=== PATIENT | male | born 1945 | race Caucasian/White ===

== ENCOUNTER → 2023-05-19 10:25 | Outpatient (REF) | payer OTHER, SELFPAY | LOC: MRI 10:25 | PROVIDERS: ATTENDING PHYSICIAN Surgery Vascular Surgery; FAMILY PHYSICIAN Internal Medicine | DX: I65.23 Occlusion and stenosis of bilateral carotid arteries (principal) | CPT/HCPCS: 70553; A9575 ==

== ENCOUNTER 2023-06-02 04:18 | Inpatient (IN) | payer OTHER, SELFPAY ==
[2023-06-02] VITALS (13 sets, daily range): BP systolic 101–123; BP diastolic 51–103
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
[2023-06-02 01:14] LABS: % Basophils 0.8 % (0-2); % Eosinophils 0.9 % (0-6); % Immature Granulocytes 0.5 % (0-0.5); % Lymphocytes 16.4 % (20.5-51.1); % Monocytes 10.8 % (1.7-9.3); % Neutrophils 70.6 % (42.2-75.2); Absolute Basophils 0.1 10^3/uL (0-0.2); Absolute Eosinophils 0.1 10^3/uL (0-0.7); Absolute Immature Granulocytes 0.1 10^3/uL (0-0.05); Absolute Lymphocytes 1.6 10^3/uL (1.2-3.4); Absolute Monocytes 1.1 10^3/uL (0.1-0.6); Absolute Neutrophils 6.9 10^3/uL (1.4-6.5); Hematocrit 27.7 % (39.0-52.0); Hemoglobin 8.8 g/dL (13.0-18.0); Mean Corp Hgb Conc. 31.8 g/dL (33.0-37.0); Mean Corpuscular Hgb 29.2 pg (27.0-31.0); Nucleated Red Blood Cells % 0 % (-); Platelet Count 354 10^3/uL (130-400); Red Blood Cell Count 3.01 10^6/uL (4.70-6.10); Red Cell Dist. Width 13.7 % (11.5-14.5); White Blood Cell Count 9.8 10^3/uL (4.8-10.8)
[2023-06-02 01:39] LABS: ALT (SGPT) 26 U/L (0-50); AST (SGOT) 16 U/L (17-59); Albumin 2.7 g/dl (3.5-5.0); Alkaline Phosphatase 187 U/L (38-126); Blood Urea Nitrogen 28 mg/dl (9-20); Calcium 9.6 mg/dl (8.4-10.2); Carbon Dioxide 32 mmol/L (22-30); Chloride 102 mmol/L (98-107); Glucose 137 mg/dl (70-99); Potassium 3.7 mmol/L (3.5-5.1); Sodium 138 mmol/L (135-145); Total Bilirubin 0.4 mg/dl (0.2-1.3); Total Protein 5.6 g/dl (6.3-8.2); eGFR 43.56
[2023-06-02 01:40] LABS: INR 1.08; PT 13.8 Sec (11.4-14.6)
[2023-06-02 01:41] LABS: APTT 28.8 Sec (23.4-35.0)
[2023-06-02 01:57] LABS: NT-proBNP 15300 pg/ml; Troponin I 0.085 ng/ml
[2023-06-02 02:07] LABS: COVID-19 Antigen Negative (Negative)
[2023-06-02] MEDS: LASIX 40 MG IV (02:33)
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
[2023-06-02 06:16] LABS: Hematocrit 28.6 % (39.0-52.0); Hemoglobin 8.8 g/dL (13.0-18.0); Mean Corp Hgb Conc. 30.8 g/dL (33.0-37.0); Mean Corpuscular Hgb 29.1 pg (27.0-31.0); Mean Corpuscular Volume 94.7 fL (80.0-94.0); Mean Platelet Volume 9.4 fL (7.4-10.4); Platelet Count 326 10^3/uL (130-400); Red Blood Cell Count 3.02 10^6/uL (4.70-6.10); Red Cell Dist. Width 13.4 % (11.5-14.5); White Blood Cell Count 7.5 10^3/uL (4.8-10.8)
[2023-06-02 06:39] LABS: Troponin I 0.078 ng/ml
[2023-06-02 06:41] LABS: Blood Urea Nitrogen 25 mg/dl (9-20); Calcium 9.3 mg/dl (8.4-10.2); Carbon Dioxide 30 mmol/L (22-30); Chloride 104 mmol/L (98-107); Glucose 123 mg/dl (70-99); Potassium 3.7 mmol/L (3.5-5.1); Sodium 137 mmol/L (135-145); eGFR 37.82
[2023-06-02] MEDS: MUCINEX 1200 MG PO ×2 (08:15→20:35)
[2023-06-02] MEDS: VIBRAMYCIN 100 MG PO ×2 (08:15→20:39)
[2023-06-02] MEDS: DECADRON 4 MG IV ×2 (08:15→15:46)
[2023-06-02] MEDS: DUONEB 3 ML INH ×4 (08:29→20:34)
--- NOTE | 2023-06-02 08:55 | EDRN ---
Assumed care. Pt is an HOLD admit- telemetry level of care. AAOx4. Sallow complexion, skin warm and dry. MALDONADO. Noted audrey LE BKA. Chronic ramirez draining dk yellow UA. Lungs- sl diminished. Cardiac- no edema, monitor sinus rhythm. Depends dry. Waiting
on breakfast.
--- NOTE | 2023-06-02 09:48 | EDRN ---
Nba states ' I don't need to do mouth care, I don't have any teeth.' Offered mouthwash; he declined. Offered wash basin. wash cloth, etc, he declined.
--- NOTE | 2023-06-02 10:21 | PHANOTE ---
06/02/2023, [employer], spoke to pt. to obtain their med. history; pt. states to manage his own meds. at home; pt. does not know whether he is taking Ipratropium Rawlings 0.02% solution QID, Symbicort 160-4.5 mcg/act 2 puff BID, or Wixela 500-50
mcg/act 1 puff BID. All of these breathing treatments are found on pt.'s [facility] records from 05/21/2023; however, none of them are included in pt.'s pharmacy fill data. Could not confirm them.
--- NOTE | 2023-06-02 13:35 | W.PN.UPDATE ---
Update Note
Progress Note Update
Nonbillable note
Patient does not have significant volume overload. Got IV Lasix 40 mg and night with creatinine elevated to 1.8. Hold further Lasix.
Chest x-ray suggestive of new left-sided pleural effusion and may explain patient dyspnea. Interventional radiology consulted for elective thoracentesis.
Patient also on steroids for COPD flareup, will continue for now.
Minimal troponin elevation, no true clinical concern of ongoing ACS. Continue monitoring
--- NOTE | 2023-06-02 13:49 | CM ---
Met with patient in ED room. He lives alone at [facility] and has private aides 3 hours two days a week.
[facility] for sacrum wound and monthly catheter exchange.
He has bilateral BKA. He uses [facility]. He uses w/c and has walker and cane.
[facility] is a and [facility].
HE has home oxygen from [facility].
PCP Dr. Michael Roberts.
PHarmacy: [facility]
He is registered with [facility] for in home waiver program.
IT is unclear if anyone has helped him apply for [facility] aide and attendance benefit.
The rodent control worker at [place] has also helped him in past.
PLAN: HOME with [facility] or [facility] rehab stay.
--- NOTE | 2023-06-02 15:50 | PTCARENOTE ---
pt admitted from ED, came from IR S/P thoracentesis. PT AOx3, LCTA B/L on RA abd soft NT +BS x4. B/L BKA. pt has stage 2 pressure ulcer on sacrum cleansed with saline silicone boarder foam applied. preventative foam applied to thoracic spine.
[2023-06-02] MEDS: LOVENOX 40 MG SC (17:20)
[2023-06-03] MEDS: DECADRON 4 MG IV ×3 (00:19→15:02)
[2023-06-03 07:00] VITALS: BP 124/54
[2023-06-03] MEDS: DUONEB 3 ML INH ×4 (07:50→19:19)
[2023-06-03] MEDS: VIBRAMYCIN 100 MG PO ×2 (08:11→20:22)
[2023-06-03] MEDS: MUCINEX 1200 MG PO ×2 (08:11→20:22)
[2023-06-03 09:08] LABS: Body Fluid Mononuclear 86.3 %; Body Fluid Polymorphonuclear 13.7 %; Body Fluid WBC 409 /CUMM
[2023-06-03 09:11] LABS: Body Fluid Second Tech EF
--- NOTE | 2023-06-03 09:18 | VNURNOTE ---
Patient is current with [facility] since 02/03 for wound care and monthly ramirez changes.
Concerns regarding patient needing more assistance at home communicated to CM.
Patient has aide through [facility] services but [facility] is concerned he is in need of higher level of care.
[2023-06-03 09:24] LABS: Body Fluid Glucose 178 mg/dl; Body Fluid LDH 150 U/L
[2023-06-03 10:58] LABS: Blood Urea Nitrogen 34 mg/dl (9-20); Calcium 9.3 mg/dl (8.4-10.2); Carbon Dioxide 33 mmol/L (22-30); Chloride 94 mmol/L (98-107); Glucose 172 mg/dl (70-99); Potassium 3.6 mmol/L (3.5-5.1); Sodium 133 mmol/L (135-145); eGFR 43.56
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
[2023-06-03 14:53] VITALS: BP 119/60; PULSE 82; O2SAT 98
[2023-06-03 15:00] VITALS: BP 114/63
--- NOTE | 2023-06-03 16:42 | CM ---
Spoke with Nano from [facility] who will call back to tomorrow. Requested MD to order PT OT eval to assess dc needs.Will review with Nano.
As per Nano he is registered with [facility] for in home waiver program and she requested more director career time.
He has bilateral BKA. He uses w/c .
He is a [place] and [facility].
HE has home oxygen from [facility] [employer].
PLAN: HOME with [facility] or SNF rehab stay.
[2023-06-03] MEDS: LOVENOX 40 MG SC (16:59)
[2023-06-03 23:00] VITALS: BP 118/63
[2023-06-04] VITALS (8 sets, daily range): BP systolic 115–134; BP diastolic 56–72; PULSE 75; O2SAT 98
[2023-06-04] MEDS: DECADRON 4 MG IV ×4 (00:32→23:51)
[2023-06-04 06:34] LABS: Blood Urea Nitrogen 36 mg/dl (9-20); Calcium 9.5 mg/dl (8.4-10.2); Carbon Dioxide 33 mmol/L (22-30); Chloride 99 mmol/L (98-107); Glucose 105 mg/dl (70-99); Potassium 4.1 mmol/L (3.5-5.1); Sodium 134 mmol/L (135-145)
[2023-06-04] MEDS: DUONEB 3 ML INH ×4 (07:17→19:46)
[2023-06-04] MEDS: MUCINEX 1200 MG PO ×2 (08:21→20:22)
[2023-06-04] MEDS: VIBRAMYCIN 100 MG PO ×2 (08:21→20:22)
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
--- NOTE | 2023-06-04 15:22 | CM ---
Spoke with patient in room . Reviewed PT OT evals which recommended SNF.
Pt consented to go to rehab at [facility].
[facility] and [facility] snf referral placed in care port.
Will need auth.
Spoke with sister Geno [phone] (# changed Adm notified to change).she agrees with SNF at [facility].
He lives at [facility] ,As per Nano he is registered with [facility] for in home waiver program and she requested more care connector time.
He has bilateral BKA. He uses w/c .
He is a [place] [facility].
HE has home oxygen from [facility].
PLAN: To SNF after located and auth obtained
.
[2023-06-04] MEDS: LOVENOX 40 MG SC (17:21)
[2023-06-05 07:00] VITALS: BP 119/58
[2023-06-05] MEDS: DUONEB 3 ML INH (07:27)
[2023-06-05 08:34] LABS: Blood Urea Nitrogen 48 mg/dl (9-20); Calcium 9.8 mg/dl (8.4-10.2); Carbon Dioxide 34 mmol/L (22-30); Chloride 97 mmol/L (98-107); Glucose 102 mg/dl (70-99); Potassium 4.7 mmol/L (3.5-5.1); Sodium 135 mmol/L (135-145); eGFR 43.56
[2023-06-05] MEDS: MUCINEX 1200 MG PO ×2 (09:03→20:17)
[2023-06-05] MEDS: VIBRAMYCIN 100 MG PO (09:03)
[2023-06-05] MEDS: DECADRON 4 MG IV (09:03)
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
[2023-06-05 15:00] VITALS: BP 102/55
[2023-06-05] MEDS: LOVENOX 40 MG SC (17:01)
[2023-06-05 23:00] VITALS: BP 130/58
[2023-06-06 07:00] VITALS: BP 116/58
[2023-06-06] MEDS: DELTASONE 40 MG PO (07:44)
[2023-06-06] MEDS: MUCINEX 1200 MG PO (07:44)
[2023-06-06 07:49] LABS: Blood Urea Nitrogen 51 mg/dl (9-20); Calcium 9.7 mg/dl (8.4-10.2); Carbon Dioxide 36 mmol/L (22-30); Chloride 95 mmol/L (98-107); Glucose 80 mg/dl (70-99); Potassium 4.3 mmol/L (3.5-5.1); Sodium 135 mmol/L (135-145); eGFR 35.44
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
[2023-06-06 15:00] VITALS: BP 120/53
[2023-06-06] MEDS: LOVENOX 40 MG SC (17:13)
[2023-06-06] MEDS: MUCINEX PO ×2 (20:28→20:35)
[2023-06-06 23:25] VITALS: BP 132/60
[2023-06-07 07:00] VITALS: BP 109/53
[2023-06-07] MEDS: MUCINEX 1200 MG PO (08:48)
[2023-06-07] MEDS: DELTASONE 40 MG PO (08:48)
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
[2023-06-07 09:59] LABS: Blood Urea Nitrogen 16 mg/dl (9-20); Calcium 9.4 mg/dl (8.4-10.2); Carbon Dioxide 28 mmol/L (22-30); Chloride 103 mmol/L (98-107); Glucose 71 mg/dl (70-99); Potassium 3.9 mmol/L (3.5-5.1); Sodium 137 mmol/L (135-145); eGFR > 60.00
[2023-06-07 11:20] VITALS: BP 111/54; PULSE 63; O2SAT 98
[2023-06-07 12:08] VITALS: BP 111/54; PULSE 66; O2SAT 98
--- NOTE | 2023-06-07 13:16 | CM ---
Addendum entered by Ana Luisa Finnegan RN 06/07/23 14:22:
Eri S assisted and obtained auth for [facility] approved 8 days level 1 from 06/07/23 to 06/14/23 auth #[id number] Natalia [facility] aware.
Auth for ambulance [facility] auth #[id number] assistant secretary set up ambulance.
Geno sister aware of dc to [facility] today.
Linda from [facility] aware pt going to [facility] today.
IMM reviewed and agreed with dc today.
PLAN To [facility]
Original Note:
PT OT recommended SNF.
[facility] Natalia said she can take patient.
Pt on oxygen 2 liters 98%.
Pt will audrey BKA. He lives alone at [facility]. Nano [facility]ITCHCOCK at [facility] has requested increased md do resident urgent care hours.
Pt is [employer] pt.Needs auth for [facility] and ambulance .
Medical nec form completed.
[facility]
report [phone]
fax [phone]
PLAN [facility] after auth
--- NOTE | 2023-06-07 14:13 | W.DCSUMMARY ---
Discharge Summary
Discharge Data
Date of Admission: 06/02/23
Date of Discharge: 06/07/23
-
Pending Results: No
Hospital Course
Patient 77 years old male history of CHF, COPD, bilateral BKA, presented to the hospital shortness of and found to be in COPD exacerbation and also left pleural effusion. Patient had 1.2 L of transudative fluid taken out from left pleural. He was
given Lasix upon admission but discontinued and did well off diuretics. He was placed on IV steroids and bronchodilators as well as mucolytics. Patient respiratory status improved and steroids were switched to oral. Patient feels close back to
his baseline. It was determined that he will require some degree of rehabilitation and jail facility has been arranged. Patient will be discharged in relatively stable condition today.
Discharge duration: 35 minutes
Discharge Plan
-
Patient Disposition: Prison/SNF
Discharge Diagnosis/Procedures: COPD flare up, Left side pleural effusion
Condition: Fair
Diet: 2 Gram Sodium
Activity: As tolerated
Driving Restrictions: No driving
Bathing Restrictions: As per facility protocol
Other Services: PT
Referrals:
Hussein Roberts MD [Family Provider] - in one week
Prescriptions:
New
guaifenesin 600 mg Tablet Extended Release 12hr
1,200 mg PO Q12 Qty: 10 0RF
prednisone 10 mg Tablet
See Rx Instructions .ROUTE .COMPLEX Qty: 30 0RF
Rx Instructions:
Take By Mouth:
40 mg daily x3 days, 30 mg daily x3 days,
20 mg daily x3 days, 10 mg daily x3 days.
tramadol 50 mg tablet
50 mg PO BID PRN (Reason: severe pain) Qty: 4 0RF
polyethylene glycol 3350 [Miralax] 17 gram/dose powder
4 g PO DAILY Qty: 119 0RF
Continued
tamsulosin 0.4 MG capsule
0.4 mg PO QPM
cilostazol 100 MG tablet
100 mg PO BID
metoprolol succinate 50 MG tablet extended release 24 hr
25 mg PO DAILY
ipratropium bromide 0.2 MG/ML solution
0.2 mg inhalation R QID
pantoprazole 40 MG tablet,delayed release (DR/EC)
40 mg PO DAILY
simvastatin 80 mg Tablet
40 mg PO QPM
ferrous sulfate 325 mg (65 mg iron) Tablet
325 mg PO BID
fluticasone propion-salmeterol [Wixela Inhub] 500-50 mcg/dose Blister With Device
1 inh INHALATION R BID
Patient Comments:
patient unable to verify if he takes wixela or symbicort but scanned paperwork from january show wixela.
albuterol sulfate 90 mcg/actuation Hfa Aerosol Inhaler
2 puff INHALATION R Q4HPRN PRN (Reason: sob/wheezing)
Sinus Tablets
1 tab PO Q4HPRN PRN (Reason: sinus)
Patient Comments:
06/02/2023, pt. gets sinus tablets OTC but is unsure of name and strength of this med.
Discontinued
tramadol 50 mg Tablet
50 mg PO DAILY PRN (Reason: severe pain)
Patient Comments:
06/02/2023, pt. filled this med. on 05/12/2023 for 5 tablets per PDMP.
Discharge Orders:
Discharge Patient (As Directed); Ordered 06/07/23
Ordered By: Froylan Sahni
Discharge Date and Time
Discharge Date/Time: 06/07/23 19:16
[2023-06-07 15:00] VITALS: BP 120/55
[2023-06-07] MEDS: LOVENOX 40 MG SC (18:24)
== END 2023-06-07 19:16 | DRG 190 ==
LOC: 3 WEST ACU 04:18
PROVIDERS: Radiology Diagnostic Radiology; Student in an Organized Health Care Education/Training Program; ADMITTING PHYSICIAN Internal Medicine; ATTENDING PHYSICIAN Hospitalist; EMERGENCY PHYSICIAN Hospitalist; FAMILY PHYSICIAN Internal Medicine
PROC: 0W9B3ZX Drainage of Left Pleural Cavity, Percutaneous Approach, Diagnostic (ICD-10-PCS; 2023-06-02)
DX: J44.1 Chronic obstructive pulmonary disease with (acute) exacerbation (principal); J96.21 Acute and chronic respiratory failure with hypoxia; I50.32 Chronic diastolic (congestive) heart failure; I13.0 Hypertensive heart and chronic kidney disease with heart failure and stage 1 through stage 4 chronic kidney disease, or unspecified chronic kidney disease; E87.1 Hypo-osmolality and hyponatremia; Z11.52 Encounter for screening for COVID-19; F17.200 Nicotine dependence, unspecified, uncomplicated; N18.32 Chronic kidney disease, stage 3b; N40.0 Benign prostatic hyperplasia without lower urinary tract symptoms; K21.9 Gastro-esophageal reflux disease without esophagitis; E78.00 Pure hypercholesterolemia, unspecified
CPT/HCPCS: 88305; 32555; 71045; 80048; 80053; 82945; 83615; 83880; 84484; 85025; 85027; 85610; 85730; 87015; 87070; 87205; 87502; 87811; 88112; 88341; 88342; 89051; 93005; 94640; 96374; 97162; 97166; 97530; 99285

== ENCOUNTER → 2023-06-17 10:19 | Outpatient (REF) | payer OTHER, SELFPAY ==
[2023-06-17 10:33] LABS: % Basophils 0.1 % (0-2); % Eosinophils 1.5 % (0-6); % Immature Granulocytes 0.9 % (0-0.5); % Lymphocytes 11.1 % (20.5-51.1); % Monocytes 10.6 % (1.7-9.3); % Neutrophils 75.8 % (42.2-75.2); Absolute Eosinophils 0.1 10^3/uL (0-0.7); Absolute Immature Granulocytes 0.1 10^3/uL (0-0.05); Absolute Lymphocytes 0.9 10^3/uL (1.2-3.4); Absolute Monocytes 0.8 10^3/uL (0.1-0.6); Absolute Neutrophils 5.9 10^3/uL (1.4-6.5); Hematocrit 24.6 % (39.0-52.0); Hemoglobin 7.7 g/dL (13.0-18.0); Mean Corp Hgb Conc. 31.3 g/dL (33.0-37.0); Mean Corpuscular Hgb 30.2 pg (27.0-31.0); Mean Corpuscular Volume 96.5 fL (80.0-94.0); Mean Platelet Volume 10.9 fL (7.4-10.4); Nucleated Red Blood Cells % 0 % (-); Platelet Count 217 10^3/uL (130-400); Red Blood Cell Count 2.55 10^6/uL (4.70-6.10); Red Cell Dist. Width 14.4 % (11.5-14.5); White Blood Cell Count 7.8 10^3/uL (4.8-10.8)
[2023-06-17 11:00] LABS: Blood Urea Nitrogen 44 mg/dl (9-20); Calcium 8.6 mg/dl (8.4-10.2); Carbon Dioxide 31 mmol/L (22-30); Chloride 102 mmol/L (98-107); Glucose 87 mg/dl (70-99); Potassium 4.8 mmol/L (3.5-5.1); eGFR 37.82
[2023-06-17 11:08] LABS: Sodium 136 mmol/L (135-145)
== END ==
LOC: OLABP 10:19
PROVIDERS: ATTENDING PHYSICIAN Family Medicine
DX: E87.1 Hypo-osmolality and hyponatremia (principal); I13.0 Hypertensive heart and chronic kidney disease with heart failure and stage 1 through stage 4 chronic kidney disease, or unspecified chronic kidney disease; N18.30 Chronic kidney disease, stage 3 unspecified; I50.30 Unspecified diastolic (congestive) heart failure; J90 Pleural effusion, not elsewhere classified; J44.1 Chronic obstructive pulmonary disease with (acute) exacerbation
CPT/HCPCS: 36415; 80048; 85025

== ENCOUNTER → 2023-06-23 09:09 | Outpatient (REF) | payer OTHER, SELFPAY ==
[2023-06-23 10:13] LABS: % Basophils 0.2 % (0-2); % Eosinophils 0.4 % (0-6); % Immature Granulocytes 0.6 % (0-0.5); % Lymphocytes 6.5 % (20.5-51.1); % Monocytes 8.2 % (1.7-9.3); % Neutrophils 84.1 % (42.2-75.2); Absolute Immature Granulocytes 0.1 10^3/uL (0-0.05); Absolute Lymphocytes 0.6 10^3/uL (1.2-3.4); Absolute Monocytes 0.7 10^3/uL (0.1-0.6); Absolute Neutrophils 7.2 10^3/uL (1.4-6.5); Hematocrit 24.5 % (39.0-52.0); Hemoglobin 7.4 g/dL (13.0-18.0); Mean Corp Hgb Conc. 30.2 g/dL (33.0-37.0); Mean Corpuscular Hgb 29.2 pg (27.0-31.0); Mean Corpuscular Volume 96.8 fL (80.0-94.0); Mean Platelet Volume 10.9 fL (7.4-10.4); Nucleated Red Blood Cells % 0 % (-); Platelet Count 205 10^3/uL (130-400); Red Blood Cell Count 2.53 10^6/uL (4.70-6.10); Red Cell Dist. Width 14.3 % (11.5-14.5); White Blood Cell Count 8.6 10^3/uL (4.8-10.8)
[2023-06-23 10:26] LABS: Blood Urea Nitrogen 51 mg/dl (9-20); Glucose 93 mg/dl (70-99)
[2023-06-23 10:27] LABS: ALT (SGPT) 14 U/L (0-50); AST (SGOT) 22 U/L (17-59); Albumin 2.4 g/dl (3.5-5.0); Alkaline Phosphatase 85 U/L (38-126); Calcium 9.7 mg/dl (8.4-10.2); Carbon Dioxide 28 mmol/L (22-30); Chloride 108 mmol/L (98-107); Sodium 135 mmol/L (135-145); Total Bilirubin 0.6 mg/dl (0.2-1.3); Total Protein 4.8 g/dl (6.3-8.2); eGFR 28.18
[2023-06-23 11:13] LABS: Urine Albumin Trace (Neg - Trace); Urine Bilirubin 1+ (Negative); Urine Character Slightly Cloudy (Clear); Urine Color Yellow; Urine Glucose Negative (Negative); Urine Ketone Negative (Negative); Urine Leukocyte 2+ (Negative); Urine Nitrite Negative (Negative); Urine Occult Blood 4+ (Negative); Urine Urobilinogen Negative (Neg - 1+)
[2023-06-23 11:30] LABS: Urine Bacteria Many (Negative); Urine Red Blood Cell 30-40 /HPF (0-2); Urine White Cell 50-60 /HPF (0-5)
== END ==
LOC: OLABP 09:09
PROVIDERS: ATTENDING PHYSICIAN Family Medicine
DX: N18.30 Chronic kidney disease, stage 3 unspecified (principal); R48.8 Other symbolic dysfunctions; E87.1 Hypo-osmolality and hyponatremia; M62.81 Muscle weakness (generalized); N40.0 Benign prostatic hyperplasia without lower urinary tract symptoms; E78.5 Hyperlipidemia, unspecified; I13.0 Hypertensive heart and chronic kidney disease with heart failure and stage 1 through stage 4 chronic kidney disease, or unspecified chronic kidney disease; K21.9 Gastro-esophageal reflux disease without esophagitis; Z89.511 Acquired absence of right leg below knee; Z89.512 Acquired absence of left leg below knee; J44.1 Chronic obstructive pulmonary disease with (acute) exacerbation; J90 Pleural effusion, not elsewhere classified; I50.30 Unspecified diastolic (congestive) heart failure; R26.2 Difficulty in walking, not elsewhere classified; J96.11 Chronic respiratory failure with hypoxia; R33.9 Retention of urine, unspecified; M62.59 Muscle wasting and atrophy, not elsewhere classified, multiple sites; R27.8 Other lack of coordination; Z74.1 Need for assistance with personal care; R13.10 Dysphagia, unspecified
CPT/HCPCS: 80053; 81003; 81015; 85025; 87077; 87086; 87186

== ENCOUNTER → 2023-06-24 11:13 | Outpatient (REF) | payer OTHER, SELFPAY ==
[2023-06-24 12:44] LABS: % Basophils 0.3 % (0-2); % Eosinophils 0.6 % (0-6); % Immature Granulocytes 0.5 % (0-0.5); % Lymphocytes 7.5 % (20.5-51.1); % Monocytes 8.4 % (1.7-9.3); % Neutrophils 82.7 % (42.2-75.2); Absolute Eosinophils 0.1 10^3/uL (0-0.7); Absolute Lymphocytes 0.7 10^3/uL (1.2-3.4); Absolute Monocytes 0.8 10^3/uL (0.1-0.6); Absolute Neutrophils 7.3 10^3/uL (1.4-6.5); Hematocrit 24.5 % (39.0-52.0); Hemoglobin 7.4 g/dL (13.0-18.0); Mean Corp Hgb Conc. 30.2 g/dL (33.0-37.0); Mean Corpuscular Hgb 29.6 pg (27.0-31.0); Nucleated Red Blood Cells % 0 % (-); Platelet Count 193 10^3/uL (130-400); Red Cell Dist. Width 14.6 % (11.5-14.5); White Blood Cell Count 8.9 10^3/uL (4.8-10.8)
[2023-06-24 13:09] LABS: Blood Urea Nitrogen 54 mg/dl (9-20); Calcium 9.1 mg/dl (8.4-10.2); Carbon Dioxide 26 mmol/L (22-30); Chloride 105 mmol/L (98-107); Glucose 98 mg/dl (70-99); Potassium 4.3 mmol/L (3.5-5.1); Sodium 137 mmol/L (135-145); eGFR 26.78
== END ==
LOC: OLABP 11:13
PROVIDERS: ATTENDING PHYSICIAN Family Medicine
DX: N18.30 Chronic kidney disease, stage 3 unspecified (principal); R48.8 Other symbolic dysfunctions; E87.1 Hypo-osmolality and hyponatremia; M62.81 Muscle weakness (generalized); N40.0 Benign prostatic hyperplasia without lower urinary tract symptoms; E78.5 Hyperlipidemia, unspecified; I13.0 Hypertensive heart and chronic kidney disease with heart failure and stage 1 through stage 4 chronic kidney disease, or unspecified chronic kidney disease; K21.9 Gastro-esophageal reflux disease without esophagitis; Z89.511 Acquired absence of right leg below knee; Z89.512 Acquired absence of left leg below knee; R26.2 Difficulty in walking, not elsewhere classified; J96.11 Chronic respiratory failure with hypoxia; R33.9 Retention of urine, unspecified; M62.59 Muscle wasting and atrophy, not elsewhere classified, multiple sites; R27.8 Other lack of coordination; Z74.1 Need for assistance with personal care; R13.10 Dysphagia, unspecified; J44.1 Chronic obstructive pulmonary disease with (acute) exacerbation; J90 Pleural effusion, not elsewhere classified; I50.30 Unspecified diastolic (congestive) heart failure
CPT/HCPCS: 36415; 80048; 85025

== ENCOUNTER → 2023-06-28 12:18 | Outpatient (REF) | payer OTHER, SELFPAY ==
[2023-06-28 12:56] LABS: % Basophils 0.3 % (0-2); % Eosinophils 0.7 % (0-6); % Immature Granulocytes 0.4 % (0-0.5); % Lymphocytes 8.5 % (20.5-51.1); % Monocytes 11.4 % (1.7-9.3); % Neutrophils 78.7 % (42.2-75.2); Absolute Eosinophils 0.1 10^3/uL (0-0.7); Absolute Lymphocytes 0.6 10^3/uL (1.2-3.4); Absolute Monocytes 0.8 10^3/uL (0.1-0.6); Absolute Neutrophils 5.5 10^3/uL (1.4-6.5); Hematocrit 23.4 % (39.0-52.0); Hemoglobin 7.1 g/dL (13.0-18.0); Mean Corp Hgb Conc. 30.3 g/dL (33.0-37.0); Mean Corpuscular Hgb 28.7 pg (27.0-31.0); Mean Corpuscular Volume 94.7 fL (80.0-94.0); Mean Platelet Volume 10.9 fL (7.4-10.4); Nucleated Red Blood Cells % 0 % (-); Platelet Count 204 10^3/uL (130-400); Red Blood Cell Count 2.47 10^6/uL (4.70-6.10); Red Cell Dist. Width 14.8 % (11.5-14.5)
[2023-06-28 13:40] LABS: Blood Urea Nitrogen 40 mg/dl (9-20); Calcium 9.7 mg/dl (8.4-10.2); Carbon Dioxide 25 mmol/L (22-30); Chloride 106 mmol/L (98-107); Glucose 84 mg/dl (70-99); Potassium 4.1 mmol/L (3.5-5.1); Sodium 134 mmol/L (135-145); eGFR 31.43
== END ==
LOC: OLABP 12:18
PROVIDERS: ATTENDING PHYSICIAN Family Medicine
DX: R48.8 Other symbolic dysfunctions (principal); N18.30 Chronic kidney disease, stage 3 unspecified; E87.1 Hypo-osmolality and hyponatremia; M62.81 Muscle weakness (generalized); N40.0 Benign prostatic hyperplasia without lower urinary tract symptoms; E78.5 Hyperlipidemia, unspecified; I13.0 Hypertensive heart and chronic kidney disease with heart failure and stage 1 through stage 4 chronic kidney disease, or unspecified chronic kidney disease; K21.9 Gastro-esophageal reflux disease without esophagitis; Z89.511 Acquired absence of right leg below knee; Z89.512 Acquired absence of left leg below knee; R26.2 Difficulty in walking, not elsewhere classified; J96.11 Chronic respiratory failure with hypoxia; R33.9 Retention of urine, unspecified; M62.59 Muscle wasting and atrophy, not elsewhere classified, multiple sites; R27.8 Other lack of coordination; Z74.1 Need for assistance with personal care; R13.10 Dysphagia, unspecified; J44.1 Chronic obstructive pulmonary disease with (acute) exacerbation; J90 Pleural effusion, not elsewhere classified; I50.30 Unspecified diastolic (congestive) heart failure
CPT/HCPCS: 36415; 80048; 85025